=== PATIENT | female | born 1935 | race Caucasian/White ===

== ENCOUNTER → 2019-08-26 | Outpatient (CLI) | payer MEDICARE ==
[2019-08-26 12:45] LABS: Potassium 4.6 mmol/L (3.5-5.1)
[2019-08-26 12:57] LABS: Anisocytosis Slight; HCT 43.1 % (34.0-46.0); HGB 14.1 gm/dL (11.4-16.0); MCH 27.6 pg (25.0-35.0); MCHC 32.6 g/dL (31.0-37.0); MCV 84.7 fL (80.0-100.0); Mean Platelet Volume 8.6; Platelet Count 292 k/uL (150-450); RBC 5.09 m/uL (3.80-5.40); RDW 16.7 % (11.5-15.5); WBC 4.8 k/uL (3.8-10.6)
== END | disposition home or self-care (01) ==
LOC: LABPAT 11:23
PROVIDERS: ATTEND Internal Medicine Cardiovascular Disease
DX: Z01.812 Encounter for preprocedural laboratory examination (principal); I49.5 Sick sinus syndrome
CPT/HCPCS: 36415; 80051; 82565; 84520; 85027

== ENCOUNTER 2019-09-05 06:28 | Day surgery (SDC) | payer MEDICARE ==
[2019-09-03 09:32] VITALS: BMI 24.7
[~2019-09-05 06:28] MED LIST: SODIUM CHLORIDE 0.9% 1,000 ML IV SCH; ceFAZolin 1,000 MG in SODIUM CHLORIDE 0.9% IRRIGATIO 250 ML IRRIGATION ONE
[2019-09-05 07:04] VITALS: RESP 16; TEMP 97.8
[2019-09-05] MEDS ORDERED: SODIUM CHLORIDE 0.9% 500 ML 500 ML IV ONE (07:05)
[2019-09-05] MEDS ORDERED: LIDOCAINE 1% INJ 10MG/ML (20 ML MDV) ONE ×2 (07:29)
[2019-09-05] MEDS ORDERED: fentaNYL (PF) 50 MCG/ML 2 ML AMP IV ONE (07:58)
[2019-09-05] MEDS ORDERED: LIDOCAINE 1% INJ 10MG/ML (20 ML MDV) SQ ONE ×2 (07:58→08:03)
[2019-09-05] MEDS ORDERED: fentaNYL (PF) 50 MCG/ML 2 ML AMP ONE (07:59)
[2019-09-05] MEDS ORDERED: ACETAMINOPHEN TAB 325 MG TAB PO PRN (08:22)
--- NOTE | 2019-09-05 08:30 | P.PCN ---
Date of Procedure: 09/05/19 Preoperative Diagnosis: Battery depletion Postoperative Diagnosis: The same Procedure(s) Performed: Generator change Description of Procedure: HISTORY: This is a 84-year-old female with history of dual-chamber permanent pacemaker implantation for sick sinus syndrome. She was found to have evidence of battery depletion. Patient is advised to have generator change and was brought in for elective procedure. CONSENT: I have discussed the risks and benefits as related to the above mentioned procedure and both sedation/analgesia as well as necessary blood product administration. The patient has indicated understanding and acceptance of the risks of the procedure discussed. PROCEDURE: Patient was brought to the lab in a fasting state. Patient was given fentanyl for sedation. The skin over the existing pulse generator was infiltrated with lidocaine. An incision was made in the skin and was deepened until the pectoral fascia was exposed. Hemostasis was obtained. The existing pulse generator was pulled out of the pocket. The leads were disconnected and were checked for thresholds. Conscious Sedation: Versed 0mg Fentanyl 12.5 g Duration 17minutes THRESHOLDS: ATRIAL: The minimum patient threshold was 0.5 at pulse width of 0.4 with impedance of 480 ohms. P-wave: 2.75 VENTRICULAR: The minimum patient threshold is 0.0875 at pulse width of 0.4 with impedance of 304 R-wave: 4.625 THE LEADS: ATRIAL: This is manufactured by [employer]. Model number is [id number]. The serial number is [id number] VENTRICULAR: This is manufactured by [employer]. Model number is [id number] and the serial number is [id number] THE EXPLANTED DEVICE: This is manufactured by [employer]. Model number is [id number] and the serial number is [id number]. THE NEW DEVICE: This is manufactured by [employer]. Model number is capital [id number] and the serial number is [id number] The leads were then connected to a new pulse generator. Pacemaker seems to function normally. The pocket was irrigated with antibiotics. The pocket was closed in the usual fashion. Pectoral fascia was closed with 2-0 Prolene, the subcutaneous tissue was closed with 3-0 Prolene and the skin was closed with 4-0 Prolene. Patient tolerated the procedure well . Patient will be monitored on the telemetry unit for 2-3 hours. If stable patient be discharged home later today. PLAN: Patient will monitor for the next few hours. If stable patient be discharged home. Patient will continue current home medications and also antibiotic prophylactically FALLOW UP: With Dr. VC Wesley in one week
[2019-09-05] MEDS ORDERED: CEPHALEXIN 250 MG CAP PO SCH (09:00)
[2019-09-05 10:48] VITALS: BP 111/54; PULSE 54
== END 2019-09-05 10:57 | disposition home or self-care (01) ==
LOC: CATHEP 06:28
PROVIDERS: ATTEND Internal Medicine Cardiovascular Disease
DX: Z45.010 Encounter for checking and testing of cardiac pacemaker pulse generator [battery] (principal); I49.5 Sick sinus syndrome; I44.1 Atrioventricular block, second degree; E78.5 Hyperlipidemia, unspecified; Z87.891 Personal history of nicotine dependence; Z79.82 Long term (current) use of aspirin; Z79.899 Other long term (current) drug therapy
CPT/HCPCS: 33228; C1785; J0690 ×2; J2001; J3010

== ENCOUNTER → 2021-05-13 | Outpatient (CLI) | payer MEDICARE | END | disposition home or self-care (01) ==